=== PATIENT | female | born 1950 | race Two or more races ===

== ENCOUNTER 2023-02-11 13:28 | Outpatient (CLI) | payer OTHER | END 2023-02-11 13:29 | disposition home or self-care (01) | LOC: NUCLEAR 13:28 | DX: M81.0 Age-related osteoporosis without current pathological fracture (principal) ==

== ENCOUNTER 2024-02-11 08:50 | Outpatient (CLI) | payer OTHER | END 2024-02-11 08:56 | disposition home or self-care (01) | LOC: MAMO-SONO 08:50 | DX: N60.11 Diffuse cystic mastopathy of right breast (principal); N60.12 Diffuse cystic mastopathy of left breast ==

== ENCOUNTER 2024-10-10 11:28 | Emergency (ER) | payer OTHER ==
[~2024-10-10] VITALS: Ht 157.5 cm; Wt 51.3 kg
[2024-10-10] MEDS ORDERED: KETOROLAC TROMETHAMINE 30 MG VIAL IM STA (13:07)
== END 2024-10-10 14:10 | disposition home or self-care (01) ==
LOC: ER 11:30
DX: M79.601 Pain in right arm (principal)
CPT/HCPCS: 96372; 99282; J1885

== ENCOUNTER 2025-08-16 09:36 | Outpatient (CLI) | payer OTHER | END 2025-08-16 09:37 | disposition home or self-care (01) | LOC: NUCLEAR 09:36 | DX: M85.89 Other specified disorders of bone density and structure, multiple sites (principal); M81.0 Age-related osteoporosis without current pathological fracture ==

== ENCOUNTER → 2025-08-21 | Outpatient (CLI) | payer OTHER | END | disposition home or self-care (01) | LOC: MAMO-SONO 09:24 | PROVIDERS: ATTEND General Practice | DX: N64.4 Mastodynia (principal); Z12.31 Encounter for screening mammogram for malignant neoplasm of breast ==